=== PATIENT | female | born 1975 | race American Indian/Alaskan Native ===

== ENCOUNTER 2022-01-04 19:50 | Emergency (ER) | payer SELFPAY ==
[2022-01-04 21:17] VITALS: BP 116/77
--- NOTE | 2022-01-04 22:00 | XRay Report ---
RIGHT FOOT 3 VIEW(S) INDICATION / CLINICAL INFORMATION: foot pain COMPARISON: None available. FINDINGS: BONES / JOINT(S): No acute fracture or subluxation. No significant arthritis. SOFT TISSUES: No significant abnormality. ADDITIONAL FINDINGS: None. IMPRESSION: 1. No acute findings. Signer Name: Gregory Connolly MD Signed: 01/04/2022 9:56 PM Workstation Name: [id number]
== END 2022-01-05 02:08 | disposition left against medical advice (07) ==
LOC: ED 19:50
DX: M79.671 Pain in right foot (principal); Z53.21 Procedure and treatment not carried out due to patient leaving prior to being seen by health care provider; W19.XXXA Unspecified fall, initial encounter; Y93.89 Activity, other specified; Y92.89 Other specified places as the place of occurrence of the external cause; Y99.8 Other external cause status